=== PATIENT | female | born 1980 | race Two or more races ===

== ENCOUNTER 2016-08-09 18:12 | Emergency (ER) | payer SELFPAY ==
[~2016-08-09] VITALS: Ht 149.9 cm; Wt 54.4 kg
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
[2016-08-09 19:35] VITALS: BP 128/74
[2016-08-09] MEDS ORDERED: IBUPROFEN600 MG ORAL (20:41)
[2016-08-09 20:47] VITALS: BP_SYST 128; BP_SYST 131; BP_DIAS 74; BP_DIAS 76
--- NOTE | 2016-08-10 11:15 | Diagnostic Imaging Report ---
Indication: PAIN Technique: 3 views of the right ankle Comparison: none Findings: No acute fractures. No dislocations. Joint spaces are preserved Impression: Negative
--- NOTE | 2016-08-10 11:19 | Diagnostic Imaging Report ---
Indication: PAIN Technique: 3 views right foot Comparison: none Findings: No acute fractures. No dislocations. Joint spaces are preserved. Impression: Negative
== END 2016-08-09 20:50 | disposition home or self-care (01) ==
LOC: EDBD 18:12 → EMR 18:43
DX: S90.02XA Contusion of left ankle, initial encounter (principal); S40.022A Contusion of left upper arm, initial encounter; S40.812A Abrasion of left upper arm, initial encounter; Y04.0XXA Assault by unarmed brawl or fight, initial encounter; Y92.89 Other specified places as the place of occurrence of the external cause
CPT/HCPCS: 99284